=== PATIENT | male | born 2000 | race Two or more races ===

== ENCOUNTER 2025-03-11 22:40 | Emergency (ER) | payer MEDICAID ==
[~2025-03-11] VITALS: Ht 165.1 cm; Wt 87.0 kg
[2025-03-11 23:13] VITALS: O2SAT 99
[2025-03-11] MEDS ORDERED: OFLO5DRO4 RIGHT EAR (23:33)
[2025-03-12 00:02] VITALS: BP 146/81; PULSE 65; RESP 14; TEMP 36.7; O2SAT 97
== END 2025-03-12 00:04 | disposition home or self-care (01) ==
LOC: ER 22:40
DX: H60.91 Unspecified otitis externa, right ear (principal)
CPT/HCPCS: 99283